=== PATIENT | female | born 1990 | race Hispanic/Latino ===

== ENCOUNTER 2024-02-19 14:54 | Emergency (ER) | payer SELFPAY ==
[2024-02-19] MEDS ORDERED: Ketorolac Tromethamine 30 MG (1 mL) VIAL ONE ×2 (16:50→16:51)
[2024-02-19] MEDS ORDERED: Acetaminophen 500 MG TAB ONE (16:50)
[2024-02-19] MEDS ORDERED: Metoclopramide HCl 10 MG (2 mL) VIAL ONE (16:52)
[2024-02-19] MEDS ORDERED: diphenhydrAMINE 50 MG/ML VIAL ONE (16:54)
[2024-02-19] MEDS ORDERED: Oxymetazoline HCl 0.05% (30 ML BOT) ONE (16:57)
[2024-02-19 17:34] LABS: #Basophils 0.04 10x3/uL (0.0-0.2); %Basophils 0.3 % (0.0-1.0); %Eosinophils 1.9 % (0.0-10.0); %Lymphocytes 26.5 % (21.0-51.0); %Monocytes 6.7 % (0.0-10.0); %Neutrophils 64.3 % (42.0-75.0); Hematocrit 44.1 % (36.0-47.0); Hemoglobin 14.9 g/dL (12.0-16.0); Mean Corpuscular HGB CONC 33.8 g/dL (32.0-36.0); Mean Corpuscular Hemoglobin 30.3 pg (27.0-31.0); Mean Corpuscular Volume 89.8 fL (78.0-98.0); Mean Platelet Volume 10.5 fL (7.4-10.4); Platelet Count 355 10x3/uL (130-400); RBC Distribution Width 12.6 % (11.5-14.5); Red Blood Cell (RBC) Count 4.91 mill/uL (4.20-5.40)
[2024-02-19 17:57] LABS: Anion Gap 12 mmol/L (10-20); BUN (Urea Nitrogen) 9 mg/dL (7.0-18.7); Calc. Creatinine Clearance 0 mL/min (70-130); Calcium 9.6 mg/dL (7.8-10.44); Carbon Dioxide 25 mmol/L (22-29); Chloride 102 mmol/L (98-107); Estimated GFR 96; Glucose 89 mg/dL (70-105); Potassium 3.4 mmol/L (3.5-5.1)
[2024-02-19 18:05] LABS: Sodium 136 mmol/L (136-145)
== END 2024-02-19 18:26 | disposition home or self-care (01) ==
LOC: ERS 14:54
DX: R04.0 Epistaxis (principal); R51.9 Headache, unspecified; Z55.6 Problems related to health literacy
CPT/HCPCS: 36415; 70450; 80048; 85025; 96374; 96375; J1200; J1885; J2765

== ENCOUNTER 2025-03-17 11:43 | Outpatient (CLI) | payer OTHER | END 2025-03-17 11:44 | disposition home or self-care (01) | LOC: ULT 11:43 | PROVIDERS: ATTEND Family Medicine | DX: O09.522 Supervision of elderly multigravida, second trimester (principal); Z3A.19 19 weeks gestation of pregnancy | CPT/HCPCS: 76805 ==